=== PATIENT | female | born 1985 | race Caucasian/White ===

== ENCOUNTER → 2018-10-24 | Day surgery (SDC) | payer OTHER ==
[~2018-10-24] VITALS: Ht 177.8 cm; Wt 90.7 kg
[~2018-10-24] MED LIST: PRIMACARE SOFT1 EACH PO
== END | disposition home or self-care (01) ==
LOC: ER 11:28 → CIR.AMB 13:58
DX: O03.4 Incomplete spontaneous abortion without complication (principal)

== ENCOUNTER 2023-02-05 16:48 | Emergency (ER) | payer OTHER ==
[~2023-02-05] VITALS: Ht 152.4 cm; Wt 99.8 kg
== END 2023-02-05 20:48 | disposition home or self-care (01) ==
LOC: ER 16:48
DX: O20.9 Hemorrhage in early pregnancy, unspecified (principal); Z3A.01 Less than 8 weeks gestation of pregnancy; R10.2 Pelvic and perineal pain

== ENCOUNTER 2023-03-05 10:18 | Inpatient (IN) | payer OTHER ==
[~2023-03-05] VITALS: Ht 177.8 cm; Wt 102.5 kg
== END 2023-03-07 09:43 | disposition home or self-care (01) | DRG 779 ==
LOC: CIR.AMB 10:18 → O/R 17:25 → OB/GYN 20:04
PROVIDERS: ADMIT Obstetrics & Gynecology; ATTEND Obstetrics & Gynecology
PROC: BU4CZZZ Ultrasonography of Uterus and Ovaries (ICD-10-PCS; 2023-03-05)
PROC: 10D17Z9 Manual Extraction of Products of Conception, Retained, Via Natural or Artificial Opening (ICD-10-PCS; principal; 2023-03-05 14:00)
DX: O03.1 Delayed or excessive hemorrhage following incomplete spontaneous abortion (principal); Z20.822 Contact with and (suspected) exposure to COVID-19